=== PATIENT | male | born 1945 | race Caucasian/White ===

== ENCOUNTER 2018-06-27 16:03 | Inpatient (IN) | payer MEDICARE, MEDICAID ==
--- NOTE | 2018-06-27 16:39 | ED Physician Chart ---
ED Chief Complaint/HPI - Patient Information Date Seen:: 06/27/18 Time Seen:: 16:32 Chief Complaint:: DISORIENTATION History of Present Illness:: THIS IS A CHRONICALLY ILL MALE FROM A PRISON SENT HERE FOR AN EVALUATION MORE DISORIENTATION. lately the patient has become more confused Allergies:: Allergies Allergy/AdvReac Type Severity Reaction Status Date / Time clopidogrel [From Plavix] AdvReac Verified 06/27/18 16:05 Vitals:: Vital Signs - 8 hr 06/27/18 16:05 Temp 98.0 F HR 80 RR 16 BP 134/70 O2 Sat % 96 Historian:: Patient, Medical Records Review:: Nurse's Note Reviewed ED Review of Systems - Review of Systems General/Constitutional: No fever, No chills, No weight loss, No weakness, No diaphoresis, No edema, No loss of appetite Skin: No skin lesions, No rash, No bruising Head: No headache, No light-headedness Eyes: No loss of vision, No pain, No diplopia ENT: No earache, No nasal drainage, No sore throat, No tinnitus, Other (POOR HEARING) Neck: No neck pain, No swelling, No thyromegaly, No stiffness, No mass noted Cardio Vascular: No chest pain, No palpitations, No PND, No orthopnea, No edema Pulmonary: No SOB, No cough, No sputum, No wheezing GI: No nausea, No vomiting, No diarrhea, No pain, No melena, No hematochezia, No constipation, No hematemesis G/U: No dysuria, No frequency, No hematuria Musculoskeletal: No bone or joint pain, No back pain, No muscle pain Endocrine: No polyuria, No polydipsia Psychiatric: No prior psych history, No depression, No anxiety, No suicidal ideation Hematopoietic: No bruising, No lymphadenopathy Allergic/Immuno: No urticaria, No angioedema Neurological: No syncope, No focal symptoms, No weakness, No paresthesia, No headache, No seizure, No dizziness, No confusion, No vertigo ED Past Medical History - Past Medical History Obtainable: Yes Past Medical History: HTN, DM, CAD, Asthma/COPD, CVA/TIA, Dyslipidemia, Arthritis, Dementia Family History: None Social History: Non Smoker, No Alcohol, No Drug Use, Care Facility Surgical History: None Psychiatricy History: Depression, Bipolar, Dementia Medication: Reviewed Family Medical History - Family Member Father History Unknown: Yes ED Physical Exam - Physical Examination General/Constitutional: Awake, Well-developed, well-nourished, Alert, No distress, GCS 15, Non-toxic appearing, Ambulatory Head: Atraumatic Eyes: Lids, conjuctiva normal, PERRL, EOMI Skin: Nl inspection, No rash, No skin lesions, No ecchymosis, Well hydrated, No lymphadenopathy ENMT: External ears, nose nl, Nasal exam nl, Lips, teeth, gums nl Neck: Nontender, Full ROM w/o pain, No JVD, No nuchal rigidity, No bruit, No mass, No stridor Respiratory: Nl effort/Exclusion, Clear to Auscultation, No Wheeze/Rhonchi/Rales Cardio Vascular: RRR, No murmur, gallop, rubs, NL S1 S2 GI: No tenderness/rebounding/guarding, No organomegaly, No hernia, Normal BS's, Nondistended, No mass/bruits, No McBurney tenderness : No CVA tenderness Extremities: No tenderness or effusion, Full ROM, normal strength in all extremities, No edema, Normal digits & nails Neuro/Psych: Alert/oriented, DTR's symmetric, Normal sensory exam, Normal motor strength, Judgement/insight normal, Mood normal, Normal gait, No focal deficits Misc: Normal back, No paraspinal tenderness ED Labs/Radiology/EKG Results - Lab Results Results: Abnormal Lab Results 06/27/18 06/27/18 06/27/18 16:44 16:44 16:44 WBC 6.9 RBC 4.10 Hgb 10.5 L Hct 31.4 L MCV 76.7 L MCH 25.5 L MCHC Differential 33.3 RDW 17.1 Plt Count 316 MPV 6.8 Neutrophils % 62.7 Lymphocytes % 25.0 Monocytes % 9.0 Eosinophils % 2.2 Basophils % 1.1 Sodium 130 L Potassium 4.7 Chloride 97 L Carbon Dioxide 24.6 Anion Gap 13.1 BUN 29 H Creatinine 1.3 Est GFR ( Amer) TNP Est GFR (Non-Af Amer) TNP BUN/Creatinine Ratio 22.3 Glucose 244 H Calcium 9.0 Total Bilirubin 0.5 AST 13 ALT 13 Alkaline Phosphatase 108 H Troponin I 0.23 H* Total Protein 7.9 Albumin 4.1 L Globulin 3.8 Albumin/Globulin Ratio 1.1 - Radiology Results Results: chest x-ray = nad - EKG Interpretations EKG Time:: 16:47 Rate & Rhythm: rate = 79, sinus [place]: left axis Comments:: no ectopy ED Assessment - Assessment General Assessment: altered level of conscious elevated troponin ED Septic Shock - . Is Septic Shock (SBP<90, OR Lactate>4 mmol\L) present?: No - <6hrs of presentation: Vital Signs: Vital Signs - 8 hr //18 16:05 Temp 98.0 F HR 80 RR 16 BP 134/70 O2 Sat % 96 ED Reassessment (Disposition) - Reassessment Reassessment Condition:: Unchanged - Diagnosis Diagnosis:: altered elevated troponin - Patient Disposition Discharge/Transfer:: Acute Care w/in this hosp Admitted to:: Telemetry Admitting Medical Physician:: Navi Santos Condition at Disposition:: Stable
[2018-06-27 16:54] LABS: % BASOPHILS 1.1 % (0.0-2.0); % EOSINOPHILS 2.2 % (0.0-5.0); % NEUTROPHILS 62.7 % (40.0-80.0); BASOPHILE ABSOLUTE 0.1 Th/cumm (0-0.2); EOSINOPHILE ABSOLUTE 0.2 Th/cmm (0.1-0.4); HEMATOCRIT 31.4 % (41.0-60); HEMOGLOBIN 10.5 gm/dL (12-16); LYMPHOCYTE ABSOLUTE 1.7 Th/cmm (1.5-3.0); MEAN CELL VOLUME 76.7 fl (80-99); MEAN CORPUSCULAR HEMOGLOBIN 25.5 pg (27.0-31.0); MEAN CORPUSCULAR HGB CONC 33.3 pg (28.0-36.0); MEAN PLATELET VOLUME 6.8 fl; MONOCYTE ABSOLUTE 0.6 Th/cmm (0.3-1.0); NEUTROPHILE ABSOLUTE 4.3 Th/cmm (1.8-8.0); PLATELET COUNT 316 Th/cmm (150-400); RED CELL DISTRIBUTION WIDTH 17.1 % (11.5-20.0); WHITE BLOOD COUNT 6.9 Th/cmm (4.8-10.8)
[2018-06-27 17:15] LABS: ALB/GLOB RATIO 1.1 (1.0-1.8); ALBUMIN 4.1 gm/dL (4.2-5.5); ALKALINE PHOSPHATASE 108 U/L (34-104); ANION GAP 13.1 (7.0-16.0); BILIRUBIN,TOTAL 0.5 mg/dL (0.3-1.0); BUN - UREA NITROGEN 29 mg/dL (7-25); CARBON DIOXIDE 24.6 mEq/L (21.0-31.0); CHLORIDE 97 mEq/L (98-107); CREATININE - SERUM 1.3 mg/dL (0.7-1.3); GLUCOSE 244 mg/dL (70-105); POTASSIUM SERUM 4.7 mEq/L (3.5-5.1); SGOT 13 U/L (13-39); SGPT/ALT 13 U/L (7-52); SODIUM SERUM 130 mEq/L (136-145); TOTAL PROTEIN,SERUM 7.9 gm/dL (6.0-8.3)
[2018-06-27 17:20] LABS: INR 0.97 (0.5-1.4); PROTHROMBIN TIME (TEST) 10.1 SECONDS (9.5-11.5)
[2018-06-27] MEDS ORDERED: Sodium Chloride 0.9% 1,000 ML IV ONE (17:56)
[2018-06-27 19:14] LABS: URINE SOURCE CLEAN C
[2018-06-27 19:33] LABS: URINE BILIRUBIN NEGATIVE (NEGATIVE); URINE BLOOD NEGATIVE (NEGATIVE); URINE CLARITY CLEAR (CLEAR); URINE COLOR YELLOW; URINE GLUCOSE (UA) NEGATIVE (NEGATIVE); URINE KETONE NEGATIVE (NEGATIVE); URINE LEUKOCYTE ESTERASE NEGATIVE (NEGATIVE); URINE MICROSCOPIC INDICATED? YES; URINE NITRATE NEGATIVE (NEGATIVE); URINE PROTEIN NEGATIVE (NEGATIVE); URINE UROBILINOGEN 0.2 E.U./dL (0.2 - 1.0)
[2018-06-27 19:55] LABS: URINE BACTERIA FEW /hpf (NONE SEEN); URINE EPITHELIAL CELLS FEW /lpf (FEW); URINE WBC 0-2 /hpf (0-5)
[2018-06-27] MEDS ORDERED: Hydrocodone/APAP 5mg/325mg Tab PO PRN (22:42)
[2018-06-28 07:49] LABS: % BASOPHILS 0.6 % (0.0-2.0); % LYMPHOCYTES 24.4 % (20.0-50.0); % MONOCYTES 10.9 % (2.0-10.0); % NEUTROPHILS 61.1 % (40.0-80.0); EOSINOPHILE ABSOLUTE 0.2 Th/cmm (0.1-0.4); HEMATOCRIT 32.9 % (41.0-60); HEMOGLOBIN 10.9 gm/dL (12-16); LYMPHOCYTE ABSOLUTE 1.3 Th/cmm (1.5-3.0); MEAN CELL VOLUME 77.2 fl (80-99); MEAN CORPUSCULAR HEMOGLOBIN 25.5 pg (27.0-31.0); MEAN PLATELET VOLUME 6.7 fl; MONOCYTE ABSOLUTE 0.6 Th/cmm (0.3-1.0); NEUTROPHILE ABSOLUTE 3.1 Th/cmm (1.8-8.0); PLATELET COUNT 261 Th/cmm (150-400); RED BLOOD COUNT 4.25 Mil/cmm (3.80-5.80); RED CELL DISTRIBUTION WIDTH 17.6 % (11.5-20.0); WHITE BLOOD COUNT 5.2 Th/cmm (4.8-10.8)
[2018-06-28 08:04] LABS: ALB/GLOB RATIO 1.1 (1.0-1.8); ALBUMIN 3.9 gm/dL (4.2-5.5); ALKALINE PHOSPHATASE 115 U/L (34-104); ANION GAP 11.4 (7.0-16.0); BILIRUBIN,TOTAL 0.6 mg/dL (0.3-1.0); BUN - UREA NITROGEN 24 mg/dL (7-25); CALCIUM SERUM 9.2 mg/dL (8.6-10.3); CARBON DIOXIDE 24.9 mEq/L (21.0-31.0); CHLORIDE 100 mEq/L (98-107); CREATININE - SERUM 1.1 mg/dL (0.7-1.3); GLUCOSE 233 mg/dL (70-105); POTASSIUM SERUM 4.3 mEq/L (3.5-5.1); SGOT 13 U/L (13-39); SGPT/ALT 10 U/L (7-52); SODIUM SERUM 132 mEq/L (136-145); TOTAL PROTEIN,SERUM 7.6 gm/dL (6.0-8.3)
[2018-06-28] MEDS: Sodium Chloride 0.9% 1,000 ML IV SCH (08:16)
[2018-06-28] MEDS: INSULIN ASPART SLIDING SCALE 100 UNITS/ML UNIT SUBQ SCH ×4 (08:16→22:25)
[2018-06-28] MEDS: Pantoprazole 40 mg EC Tab PO SCH (08:51)
[2018-06-28] MEDS ORDERED: BUDESONIDE IH SCH (09:00)
[2018-06-28] MEDS ORDERED: [UNRECOGNIZED DRUG - OTHER] IH SCH (09:00)
[2018-06-28] MEDS ORDERED: FORMOTEROL FUMARATE IH SCH (09:00)
--- NOTE | 2018-06-28 09:28 | Diagnostic Imaging Report ---
CT scan of the brain without intravenous contrast HISTORY: Stroke, CVA Total DLP equals 740 CTDI equals 38.5 Axial sections were obtained from the base of the skull to the vertex. There is prominence/enlargement of the ventricular system size. Associated enlargement of cerebral sulci and subarachnoid cisterns. Findings are consistent with changes of generalized cerebral atrophy. Focal hypodensity is noted within the right occipital region. No mass effect. The overall appearance suggests changes associated with an old infarct. If necessary, an MRI examination would provide additional characterization and assessment. Small hypodense focus noted in the right thalamus consistent with an old infarct. No acute parenchymal abnormalities. No acute cerebral hemorrhage. Hypodensity is seen within the supratentorial white matter regions without mass effect. The findings may be associated with chronic small vessel ischemic disease. No extra-axial masses or abnormal fluid collections. Severe atherosclerotic calcification seen in the vertebral arteries at the base of the skull. IMPRESSION: 1. No acute abnormalities 2. Cerebral atrophy 3. Supratentorial white matter changes that may reflect chronic small vessel ischemic disease 4. Focal hypodensity within the right occipital region. The overall appearance suggests changes associated with an old infarct. However, if indicated, an MRI exam would provide additional characterization. 5. Small hypodensity within the right thalamus consistent with old lacunar infarct 6. Severe atherosclerotic vascular changes
--- NOTE | 2018-06-28 09:36 | Diagnostic Imaging Report ---
Portable chest x-ray HISTORY: Pain The heart size is difficult to assess with portable technique and a poor inspiration. No acute focal pulmonary processes. No hilar or mediastinal abnormalities. IMPRESSION: 1. No acute focal pulmonary processes
[2018-06-28] MEDS: Enoxaparin 100 mg/mL 1mL Syr SUBQ SCH ×2 (10:10→22:12)
--- NOTE | 2018-06-28 10:49 | History and Physical ---
History of Present Illness - HPI Chief Complaint: Altered level of concious. HPI: This a patient that I follow at a SNF, I received a call stating that patient showed increased in confusion. In ER evaluation was found elevated troponins Vital Signs: Last Vital Signs Temp 98.2 F 06/28/18 08:00 Pulse 76 06/28/18 08:51 Resp 16 06/28/18 08:00 BP 147/64 06/28/18 08:51 Pulse Ox 95 06/28/18 08:00 Past Medical History Cardiovascular: Report: CAD, HTN Pulmonary: Report: Asthma, COPD SAND HAULER: Report: Dementia GI: Report: No Pertinent Hx Psych: Report: Anxiety Musculoskeletal: Report: Low Back Pain Rheumatologic: Report: No pertinent Hx Infectious Disease: Report: No Pertinent Hx Renal/: Report: No Pertinent Hx Endocrine: Report: Diabetes - Past Surgical History Past Surgical History: Other (Cardiac Stent placement) Family Medical History - Family Member Father History Unknown: Yes Social History Smoke: No Alcohol: None Drugs: None Lives: [facility] Domestic Violence: Negative - Medications Home Medications: Home Medication Medication Instructions Recorded Type Acetaminophen [Tylenol] 650 mg PO Q6HR PRN 06/27/18 History Albuterol Sulfate [Proair 90 mcg IH Q6H PRN 06/27/18 History Respiclick] Aspirin [Aspirin Chewable] 81 mg PO DAILY 06/27/18 History Atorvastatin Calcium [Lipitor] 40 mg PO HS 06/27/18 History Budesonide/Formoterol Fumarate 14.5 mcg IH BID 06/27/18 History [Symbicort 160-4.5 Mcg Inhaler] FLUoxetine HCL [Prozac*] 20 mg PO BID 06/27/18 History Hydrocodone/Acetaminophen [Tatamy 1 tab PO QID PRN 06/27/18 History 325 mg-5 mg*] Insulin Glargine,Hum.rec.anlog 25 unit SUBQ 06/27/18 History [Lantus Solostar] Lisinopril [Zestril] 10 mg PO DAILY 06/27/18 History Metoprolol Succinate [Toprol Xl] 25 mg PO DAILY 06/27/18 History Omeprazole 40 mg PO DAILY 06/27/18 History Tiotropium D Lo [Spiriva 2.5 mcg IH TID PRN 06/27/18 History Respimat] - Allergies Allergies/Adverse Reactions: Allergies Allergy/AdvReac Type Severity Reaction Status Date / Time corn Allergy Severe Verified 06/27/18 18:06 nicotine Allergy Severe Verified 06/27/18 18:06 tomato Allergy Severe Verified 06/27/18 18:05 clopidogrel [From Plavix] AdvReac Verified 06/27/18 16:05 Review of Systems - Review of Systems Constitutional: Report: Weakness Eyes: Report: No Significant ENT: Report: No Significant Respiratory: Report: No Significant Cardiovascular: Report: No Significant Gastrointestinal: Report: No Significant Genitourinary: Report: No Significant Musculoskeletal: Report: Back Pain Skin: Report: No Significant Neurological: Report: Weakness Physical Exam - Physical Exam HEENT: Report: Ears Nose Throat within normal limits Neck: Report: Within normal limits Cardiovascular Systems: Report: Regular, Rate and Rhythm Respiratory: Report: Breath Sounds are within normal limits Abdomen: Report: Non-tender to palpation Back: Report: Inspection of back is within normal limits. Extremities: Report: Non-tender to palpation. Skin: Report: Color of skin is within normal limits, Warm, Dry Neuro/Psych: Report: Disoriented to name time or place - Lab Results All Lab Results last 24 hours: Laboratory Results - last 24 hr 06/27/18 06/27/18 06/27/18 16:44 16:44 16:44 WBC 6.9 RBC 4.10 Hgb 10.5 L Hct 31.4 L MCV 76.7 L MCH 25.5 L MCHC Differential 33.3 RDW 17.1 Plt Count 316 MPV 6.8 Neutrophils % 62.7 Lymphocytes % 25.0 Monocytes % 9.0 Eosinophils % 2.2 Basophils % 1.1 PT 10.1 INR 0.97 PTT (Actin FS) 25.0 L Sodium 130 L Potassium 4.7 Chloride 97 L Carbon Dioxide 24.6 Anion Gap 13.1 BUN 29 H Creatinine 1.3 Est GFR ( Amer) TNP Est GFR (Non-Af Amer) TNP BUN/Creatinine Ratio 22.3 Glucose 244 H POC Glucose Calcium 9.0 Total Bilirubin 0.5 AST 13 ALT 13 Alkaline Phosphatase 108 H Troponin I Total Protein 7.9 Albumin 4.1 L Globulin 3.8 Albumin/Globulin Ratio 1.1 TSH Urine Source Urine Color Urine Clarity Urine pH Ur Specific [place] Urine Protein Urine Glucose (UA) Urine Ketones Urine Blood Urine Nitrate Urine Bilirubin Urine Urobilinogen Ur Leukocyte Esterase Urine RBC Urine WBC Ur Epithelial Cells Urine Bacteria Urine Mucus 06/27/18 06/27/18 06/27/18 16:44 16:44 18:00 WBC RBC Hgb Hct MCV MCH MCHC Differential RDW Plt Count MPV Neutrophils % Lymphocytes % Monocytes % Eosinophils % Basophils % PT INR PTT (Actin FS) Sodium Potassium Chloride Carbon Dioxide Anion Gap BUN Creatinine Est GFR ( Amer) Est GFR (Non-Af Amer) BUN/Creatinine Ratio Glucose POC Glucose Calcium Total Bilirubin AST ALT Alkaline Phosphatase Troponin I 0.23 H* Total Protein Albumin Globulin Albumin/Globulin Ratio TSH 1.45 Urine Source CLEAN C Urine Color YELLOW Urine Clarity CLEAR Urine pH 6.0 Ur Specific [place] 1.015 Urine Protein NEGATIVE Urine Glucose (UA) NEGATIVE Urine Ketones NEGATIVE Urine Blood NEGATIVE Urine Nitrate NEGATIVE Urine Bilirubin NEGATIVE Urine Urobilinogen 0.2 Ur Leukocyte Esterase NEGATIVE Urine RBC 2-5 H Urine WBC 0-2 Ur Epithelial Cells FEW Urine Bacteria FEW Urine Mucus FEW 06/27/18 06/28/18 06/28/18 23:05 05:49 07:38 WBC 5.2 RBC 4.25 Hgb 10.9 L Hct 32.9 L MCV 77.2 L MCH 25.5 L MCHC Differential 33.0 RDW 17.6 Plt Count 261 MPV 6.7 Neutrophils % 61.1 Lymphocytes % 24.4 Monocytes % 10.9 H Eosinophils % 3.0 Basophils % 0.6 PT INR PTT (Actin FS) Sodium Potassium Chloride Carbon Dioxide Anion Gap BUN Creatinine Est GFR ( Amer) Est GFR (Non-Af Amer) BUN/Creatinine Ratio Glucose POC Glucose 222 H Calcium Total Bilirubin AST ALT Alkaline Phosphatase Troponin I 0.21 H* Total Protein Albumin Globulin Albumin/Globulin Ratio TSH Urine Source Urine Color Urine Clarity Urine pH Ur Specific [place] Urine Protein Urine Glucose (UA) Urine Ketones Urine Blood Urine Nitrate Urine Bilirubin Urine Urobilinogen Ur Leukocyte Esterase Urine RBC Urine WBC Ur Epithelial Cells Urine Bacteria Urine Mucus 06/28/18 06/28/18 07:38 07:38 WBC RBC Hgb Hct MCV MCH MCHC Differential RDW Plt Count MPV Neutrophils % Lymphocytes % Monocytes % Eosinophils % Basophils % PT INR PTT (Actin FS) Sodium 132 L Potassium 4.3 Chloride 100 Carbon Dioxide 24.9 Anion Gap 11.4 BUN 24 Creatinine 1.1 Est GFR ( Amer) TNP Est GFR (Non-Af Amer) TNP BUN/Creatinine Ratio 21.8 Glucose 233 H POC Glucose Calcium 9.2 Total Bilirubin 0.6 AST 13 ALT 10 Alkaline Phosphatase 115 H Troponin I 0.17 H* D Total Protein 7.6 Albumin 3.9 L Globulin 3.7 Albumin/Globulin Ratio 1.1 TSH Urine Source Urine Color Urine Clarity Urine pH Ur Specific [place] Urine Protein Urine Glucose (UA) Urine Ketones Urine Blood Urine Nitrate Urine Bilirubin Urine Urobilinogen Ur Leukocyte Esterase Urine RBC Urine WBC Ur Epithelial Cells Urine Bacteria Urine Mucus - Assessment Assessment: Patient is awake, alert, calm, in no acute distress. Dx: Elevated troponin, HTN , DM, COPD, Hard of hearing, - Plan Plan: Pastient is in IV NS, Lovenos, and continue with SNF meds. He is follow by cardiology.
[2018-06-28] MEDS: Hydrocodone/APAP 5mg/325mg Tab PO PRN ×2 (12:51→22:09)
[2018-06-28] MEDS: Atorvastatin Calcium 10 MG TAB PO SCH (22:06)
[2018-06-28] MEDS: Insulin Detemir 100 units/mL 10mL Vial SUBQ SCH (22:26)
--- NOTE | 2018-06-29 02:50 | Consultation ---
DATE OF CONSULTATION: 06/28/[address] Santos. HISTORY OF PRESENT ILLNESS: This is a 73-year-old male patient who was brought to the Emergency Room due to increased confusion in the Emergency Room. The patient has elevated troponin level and hence, the patient was admitted. PAST MEDICAL HISTORY: The patient has a history of hypertension, angina, asthma, COPD, diabetes mellitus type 2, and deafness. FAMILY HISTORY: Unremarkable. SOCIAL HISTORY: No history of smoking, alcohol abuse. ALLERGIES: No known allergies. PHYSICAL EXAMINATION: VITAL SIGNS: Blood pressure 140/64, pulse 70, and respirations 20. HEAD: Normocephalic. No lumps or bumps. EYES: Pupils equal, reactive to light. Fundi show AV nicking, sclerae white, conjunctivae pink. NECK: Carotid 2+. Normal upstroke. JVD flat. Thyroid not palpable. Lymph nodes not palpable. CHEST: Shows increased AP diameter. No kyphosis, scoliosis. LUNGS: Bilateral bronchovesicular breath sounds. HEART: PMI fifth intercostal space with lateral to midclavicular line. S1, S2. No S3, S4, soft systolic murmur. ABDOMEN: Soft. Liver, spleen not palpable. No organomegaly. Bowel sounds active. NEUROLOGIC: Unremarkable. CLINICAL IMPRESSION: 1. Non-ST elevation myocardial infarction. 2. Hypertension. 3. Coronary artery disease with stent. 4. Asthma. 5. Chronic obstructive pulmonary disease. 6. Diabetes mellitus type 2. 7. Deafness. PLAN: Admit the patient. We will get Lovenox and echocardiogram and follow up in the intensive care. [facility]# [id number]
[2018-06-29] MEDS: Hydrocodone/APAP 5mg/325mg Tab PO PRN ×3 (04:33→18:42)
[2018-06-29 05:39] LABS: % EOSINOPHILS 3.4 % (0.0-5.0); % LYMPHOCYTES 29.7 % (20.0-50.0); % NEUTROPHILS 55.9 % (40.0-80.0); BASOPHILE ABSOLUTE 0.1 Th/cumm (0-0.2); EOSINOPHILE ABSOLUTE 0.2 Th/cmm (0.1-0.4); HEMATOCRIT 29.6 % (41.0-60); HEMOGLOBIN 9.9 gm/dL (12-16); LYMPHOCYTE ABSOLUTE 1.8 Th/cmm (1.5-3.0); MEAN CELL VOLUME 76.3 fl (80-99); MEAN CORPUSCULAR HEMOGLOBIN 25.5 pg (27.0-31.0); MEAN CORPUSCULAR HGB CONC 33.5 pg (28.0-36.0); MONOCYTE ABSOLUTE 0.6 Th/cmm (0.3-1.0); NEUTROPHILE ABSOLUTE 3.5 Th/cmm (1.8-8.0); PLATELET COUNT 262 Th/cmm (150-400); RED BLOOD COUNT 3.87 Mil/cmm (3.80-5.80); RED CELL DISTRIBUTION WIDTH 17.3 % (11.5-20.0); WHITE BLOOD COUNT 6.2 Th/cmm (4.8-10.8)
[2018-06-29] MEDS: Sodium Chloride 0.9% 1,000 ML IV SCH ×2 (05:59→16:54)
[2018-06-29 06:02] LABS: ALB/GLOB RATIO 1.1 (1.0-1.8); ALBUMIN 3.6 gm/dL (4.2-5.5); ALKALINE PHOSPHATASE 97 U/L (34-104); ANION GAP 9.4 (7.0-16.0); BILIRUBIN,TOTAL 0.5 mg/dL (0.3-1.0); BUN - UREA NITROGEN 22 mg/dL (7-25); CALCIUM SERUM 8.9 mg/dL (8.6-10.3); CARBON DIOXIDE 27.8 mEq/L (21.0-31.0); CHLORIDE 102 mEq/L (98-107); CREATININE - SERUM 1.2 mg/dL (0.7-1.3); POTASSIUM SERUM 4.2 mEq/L (3.5-5.1); SGOT 12 U/L (13-39); SGPT/ALT 10 U/L (7-52); SODIUM SERUM 135 mEq/L (136-145); TOTAL PROTEIN,SERUM 6.9 gm/dL (6.0-8.3)
[2018-06-29 06:11] LABS: GLUCOSE 125 mg/dL (70-105)
[2018-06-29] MEDS: INSULIN ASPART SLIDING SCALE 100 UNITS/ML UNIT SUBQ SCH ×4 (07:17→21:14)
[2018-06-29] MEDS: Pantoprazole 40 mg EC Tab PO SCH (08:38)
[2018-06-29] MEDS: Enoxaparin 100 mg/mL 1mL Syr SUBQ SCH ×2 (08:39→21:13)
--- NOTE | 2018-06-29 09:03 | General Progress Note ---
Subjective - Review of Systems Service Date: 06/29/18 Subjective: I am Ok. Objective - Results Result Diagrams: 06/29/18 04:50 06/29/18 04:50 Recent Labs: Laboratory Last Values WBC 6.2 Th/cmm (4.8-10.8) 06/29/18 04:50 RBC 3.87 Mil/cmm (3.80-5.80) 06/29/18 04:50 Hgb 9.9 gm/dL (12-16) L 06/29/18 04:50 Hct 29.6 % (41.0-60) L 06/29/18 04:50 MCV 76.3 fl (80-99) L 06/29/18 04:50 MCH 25.5 pg (27.0-31.0) L 06/29/18 04:50 MCHC Differential 33.5 pg (28.0-36.0) 06/29/18 04:50 RDW 17.3 % (11.5-20.0) 06/29/18 04:50 Plt Count 262 Th/cmm (150-400) 06/29/18 04:50 MPV 7.0 fl 06/29/18 04:50 Neutrophils % 55.9 % (40.0-80.0) 06/29/18 04:50 Lymphocytes % 29.7 % (20.0-50.0) 06/29/18 04:50 Monocytes % 10.0 % (2.0-10.0) 06/29/18 04:50 Eosinophils % 3.4 % (0.0-5.0) 06/29/18 04:50 Basophils % 1.0 % (0.0-2.0) 06/29/18 04:50 PT 10.1 SECONDS (9.5-11.5) 06/27/18 16:44 INR 0.97 (0.5-1.4) 06/27/18 16:44 PTT (Actin FS) 25.0 SECONDS (26.0-38.0) L 06/27/18 16:44 Sodium 135 mEq/L (136-145) L 06/29/18 04:50 Potassium 4.2 mEq/L (3.5-5.1) 06/29/18 04:50 Chloride 102 mEq/L (98-107) 06/29/18 04:50 Carbon Dioxide 27.8 mEq/L (21.0-31.0) 06/29/18 04:50 Anion Gap 9.4 (7.0-16.0) 06/29/18 04:50 BUN 22 mg/dL (7-25) 06/29/18 04:50 Creatinine 1.2 mg/dL (0.7-1.3) 06/29/18 04:50 Est GFR ( Amer) TNP 06/29/18 04:50 Est GFR (Non-Af Amer) TNP 06/29/18 04:50 BUN/Creatinine Ratio 18.3 06/29/18 04:50 Glucose 125 mg/dL (70-105) H D 06/29/18 04:50 POC Glucose 142 MG/DL (70 - 105) H 06/29/18 06:04 Calcium 8.9 mg/dL (8.6-10.3) 06/29/18 04:50 Total Bilirubin 0.5 mg/dL (0.3-1.0) 06/29/18 04:50 AST 12 U/L (13-39) L 06/29/18 04:50 ALT 10 U/L (7-52) 06/29/18 04:50 Alkaline Phosphatase 97 U/L (34-104) 06/29/18 04:50 Troponin I 0.13 ng/mL (0.01-0.05) H* D 06/29/18 04:50 B-Natriuretic Peptide 134.0 pg/mL (5.0-100.0) H 06/29/18 04:50 Total Protein 6.9 gm/dL (6.0-8.3) 06/29/18 04:50 Albumin 3.6 gm/dL (4.2-5.5) L 06/29/18 04:50 Globulin 3.3 gm/dL 06/29/18 04:50 Albumin/Globulin Ratio 1.1 (1.0-1.8) 06/29/18 04:50 TSH 1.45 uIU/ml (0.34-5.60) 06/27/18 16:44 Urine Source CLEAN C 06/27/18 18:00 Urine Color YELLOW 06/27/18 18:00 Urine Clarity CLEAR (CLEAR) 06/27/18 18:00 Urine pH 6.0 (4.6 - 8.0) 06/27/18 18:00 Ur Specific [place] 1.015 (1.005-1.030) 06/27/18 18:00 Urine Protein NEGATIVE mg/dL (NEGATIVE) 06/27/18 18:00 Urine Glucose (UA) NEGATIVE mg/dL (NEGATIVE) 06/27/18 18:00 Urine Ketones NEGATIVE mg/dL (NEGATIVE) 06/27/18 18:00 Urine Blood NEGATIVE (NEGATIVE) 06/27/18 18:00 Urine Nitrate NEGATIVE (NEGATIVE) 06/27/18 18:00 Urine Bilirubin NEGATIVE (NEGATIVE) 06/27/18 18:00 Urine Urobilinogen 0.2 E.U./dL (0.2 - 1.0) 06/27/18 18:00 Ur Leukocyte Esterase NEGATIVE (NEGATIVE) 06/27/18 18:00 Urine RBC 2-5 /hpf (0-5) H 06/27/18 18:00 Urine WBC 0-2 /hpf (0-5) 06/27/18 18:00 Ur Epithelial Cells FEW /lpf (FEW) 06/27/18 18:00 Urine Bacteria FEW /hpf (NONE SEEN) 06/27/18 18:00 Urine Mucus FEW /lpf (FEW) 06/27/18 18:00 - Physical Exam Vitals and I&O: Vital Signs Temp 98 F 06/29/18 04:00 Pulse 66 06/29/18 08:36 Resp 18 06/29/18 04:00 BP 136/60 06/29/18 08:36 Pulse Ox 97 06/29/18 04:00 Intake & Output 06/28/18 06/29/18 06/29/18 18:59 06:59 18:59 Intake Total 1550 1000 Output Total 1100 Balance 450 1000 Weight (lbs) 105.007 kg 104.78 kg Intake: Intake, IV Amount 1000 Sodium Chloride 0.9% 1, 1000 000 ml @ 80 mls/hr IV . [id number] JAYDE Rx#:[id number] Oral 1550 Output: Urine 1100 Other: # Voids 3 # Bowel Movements 0 Weight Source Bedscale Bedscale Active Medications: Current Medications Acetaminophen (Tylenol) 650 mg PO Q6HR PRN PRN Reason: Pain (Mild) Stop: 08/26/18 22:41 Last Admin: 06/29/18 08:37 Dose: 650 mg Acetaminophen/Hydrocodone Bitart ([place] 5mg/325mg) 1 tab PO Q6H PRN PRN Reason: Pain (Severe) Stop: 08/26/18 22:41 Last Admin: 06/29/18 04:33 Dose: 1 tab Albuterol Sulfate (Albuterol 2.5mg/3ml Neb Ud) 2.5 mg HHN [id number] [facility] Stop: 08/27/18 18:59 Aspirin (Aspirin) 325 mg PO DAILY JAYDE Stop: 08/26/18 17:59 Last Admin: 06/29/18 08:39 Dose: 325 mg Atorvastatin Calcium (Lipitor) 40 mg PO HS [facility] Stop: 08/27/18 20:59 Last Admin: 06/28/18 22:06 Dose: 40 mg Budesonide (Pulmicort) 0.5 mg HHN BIDRT [facility] Stop: 08/27/18 18:59 Enoxaparin Sodium (Lovenox) 100 mg SUBQ Q12HR [facility] Stop: 08/27/18 09:59 Last Admin: 06/29/18 08:39 Dose: 100 mg Fluoxetine HCl (Prozac) 20 mg PO BID [facility]; Protocol Stop: 08/27/18 08:59 Last Admin: 06/29/18 08:38 Dose: 20 mg Sodium Chloride (Nacl 0.9%) 1,000 mls @ 80 mls/hr IV .[id number] [facility] Stop: 08/27/18 07:59 Last Admin: 06/29/18 05:59 Dose: 80 mls/hr Insulin Aspart (Novolog Insulin Sliding Scale) 0 units SUBQ ACHS [facility]; Protocol Stop: 08/27/18 07:29 Last Admin: 06/29/18 07:17 Dose: Not Given Insulin Detemir (Levemir Insulin) 25 units SUBQ HS [facility] Stop: 08/27/18 20:59 Last Admin: 06/28/18 22:26 Dose: 25 units Lisinopril (Zestril) 10 mg PO DAILY [facility] Stop: 08/27/18 08:59 Last Admin: 06/29/18 08:36 Dose: 10 mg Metoprolol Succinate (Toprol Xl) 25 mg PO DAILY [facility] Stop: 08/27/18 08:59 Last Admin: 06/29/18 08:35 Dose: 25 mg Pantoprazole Sodium (Protonix) 40 mg PO DAILY JAYDE Stop: 08/27/18 08:59 Last Admin: 06/29/18 08:38 Dose: 40 mg General: Alert, No acute distress HEENT: Atraumatic Neck: Supple Cardiovascular: Regular rate Lungs: Clear to auscultation Abdomen: Bowel sounds, Soft Extremities: Other (No edema) Neurological: Other (Unstable gait) Skin: Other (Warm and dry) Psych/Mental Status: Mental status NL Assessment/Plan - Assessment Assessment: Patient is awake, alert, calm, in no acute distress. Troponin improving. Dx: Non ST elevation SC, HTN, DM, COPD, Deaf, HX of cardiac stent. - Plan Plan: Pastient is in IV NS, Lovenox, and continue with SNF meds. He is follow by cardiology. Patient will be send to regular floor.
[2018-06-29] MEDS: Albuterol Nebulizer 2.5mg/3mL HHN SCH ×2 (12:44→18:52)
--- NOTE | 2018-06-29 15:58 | Cardiology ---
06/28/[address] Santos. M-MODE ECHOCARDIOGRAM: Mitral valve, anterior leaflet of mitral valve shows normal excursion, EF velocity. Posterior leaflet of mitral valve shows normal excursion. Left ventricle posterior wall shows increased thickness, normal excursion. Interventricular septum shows increased thickness, normal excursion, hypertrophy of the left ventricle, ejection fraction 60%. Left atrium normal. Aortic root shows normal dimension, normal excursion of aortic leaflets. CONCLUSION: Hypertrophy of the left ventricle, ejection fraction 60%. 2D ECHO: Long axis view showed normal sized left ventricle with hypertrophy of the left ventricle. Left atrium normal. Aortic root shows normal dimension, normal excursion of aortic leaflets. Short axis view of mitral valve normal. Short axis view of aortic valve normal. Apical four chamber view showed normal sized left ventricle with hypertrophy of the left ventricle. Left atrium normal. Right ventricular cavity, right atrium normal, no pericardial effusion. CONCLUSION: Hypertrophy of the left ventricle, ejection fraction 60%. Doppler study showed trace tricuspid regurgitation, right ventricular systolic pressure 17 mmHg. [facility]# [id number]
[2018-06-29] MEDS: Budesonide 0.5 Mg/2 mL Ud HHN SCH (18:52)
[2018-06-29] MEDS: Atorvastatin Calcium 10 MG TAB PO SCH (21:12)
[2018-06-29] MEDS: Insulin Detemir 100 units/mL 10mL Vial SUBQ SCH (21:15)
[2018-06-30] MEDS: Hydrocodone/APAP 5mg/325mg Tab PO PRN ×3 (01:03→17:20)
[2018-06-30 05:12] LABS: % BASOPHILS 0.8 % (0.0-2.0); % EOSINOPHILS 2.5 % (0.0-5.0); % LYMPHOCYTES 30.5 % (20.0-50.0); % MONOCYTES 8.8 % (2.0-10.0); % NEUTROPHILS 57.4 % (40.0-80.0); BASOPHILE ABSOLUTE 0.1 Th/cumm (0-0.2); EOSINOPHILE ABSOLUTE 0.2 Th/cmm (0.1-0.4); HEMATOCRIT 30.3 % (41.0-60); HEMOGLOBIN 10.2 gm/dL (12-16); LYMPHOCYTE ABSOLUTE 2.2 Th/cmm (1.5-3.0); MEAN CELL VOLUME 76.4 fl (80-99); MEAN CORPUSCULAR HEMOGLOBIN 25.7 pg (27.0-31.0); MEAN CORPUSCULAR HGB CONC 33.6 pg (28.0-36.0); MEAN PLATELET VOLUME 6.9 fl; MONOCYTE ABSOLUTE 0.6 Th/cmm (0.3-1.0); PLATELET COUNT 298 Th/cmm (150-400); RED BLOOD COUNT 3.97 Mil/cmm (3.80-5.80); RED CELL DISTRIBUTION WIDTH 17.5 % (11.5-20.0); WHITE BLOOD COUNT 7.1 Th/cmm (4.8-10.8)
--- NOTE | 2018-06-30 07:12 | General Progress Note ---
Subjective - Review of Systems Service Date: 06/30/18 Subjective: I am fine Objective - Results Result Diagrams: 06/30/18 04:50 06/29/18 04:50 Recent Labs: Laboratory Last Values WBC 7.1 Th/cmm (4.8-10.8) 06/30/18 04:50 RBC 3.97 Mil/cmm (3.80-5.80) 06/30/18 04:50 Hgb 10.2 gm/dL (12-16) L 06/30/18 04:50 Hct 30.3 % (41.0-60) L 06/30/18 04:50 MCV 76.4 fl (80-99) L 06/30/18 04:50 MCH 25.7 pg (27.0-31.0) L 06/30/18 04:50 MCHC Differential 33.6 pg (28.0-36.0) 06/30/18 04:50 RDW 17.5 % (11.5-20.0) 06/30/18 04:50 Plt Count 298 Th/cmm (150-400) 06/30/18 04:50 MPV 6.9 fl 06/30/18 04:50 Neutrophils % 57.4 % (40.0-80.0) 06/30/18 04:50 Lymphocytes % 30.5 % (20.0-50.0) 06/30/18 04:50 Monocytes % 8.8 % (2.0-10.0) 06/30/18 04:50 Eosinophils % 2.5 % (0.0-5.0) 06/30/18 04:50 Basophils % 0.8 % (0.0-2.0) 06/30/18 04:50 PT 10.1 SECONDS (9.5-11.5) 06/27/18 16:44 INR 0.97 (0.5-1.4) 06/27/18 16:44 PTT (Actin FS) 25.0 SECONDS (26.0-38.0) L 06/27/18 16:44 Sodium 135 mEq/L (136-145) L 06/29/18 04:50 Potassium 4.2 mEq/L (3.5-5.1) 06/29/18 04:50 Chloride 102 mEq/L (98-107) 06/29/18 04:50 Carbon Dioxide 27.8 mEq/L (21.0-31.0) 06/29/18 04:50 Anion Gap 9.4 (7.0-16.0) 06/29/18 04:50 BUN 22 mg/dL (7-25) 06/29/18 04:50 Creatinine 1.2 mg/dL (0.7-1.3) 06/29/18 04:50 Est GFR ( Amer) TNP 06/29/18 04:50 Est GFR (Non-Af Amer) TNP 06/29/18 04:50 BUN/Creatinine Ratio 18.3 06/29/18 04:50 Glucose 125 mg/dL (70-105) H D 06/29/18 04:50 POC Glucose 159 MG/DL (70 - 105) H 06/30/18 05:55 Calcium 8.9 mg/dL (8.6-10.3) 06/29/18 04:50 Total Bilirubin 0.5 mg/dL (0.3-1.0) 06/29/18 04:50 AST 12 U/L (13-39) L 06/29/18 04:50 ALT 10 U/L (7-52) 06/29/18 04:50 Alkaline Phosphatase 97 U/L (34-104) 06/29/18 04:50 Troponin I 0.09 ng/mL (0.01-0.05) H* D 06/30/18 04:50 B-Natriuretic Peptide 134.0 pg/mL (5.0-100.0) H 06/29/18 04:50 Total Protein 6.9 gm/dL (6.0-8.3) 06/29/18 04:50 Albumin 3.6 gm/dL (4.2-5.5) L 06/29/18 04:50 Globulin 3.3 gm/dL 06/29/18 04:50 Albumin/Globulin Ratio 1.1 (1.0-1.8) 06/29/18 04:50 TSH 1.45 uIU/ml (0.34-5.60) 06/27/18 16:44 Urine Source CLEAN C 06/27/18 18:00 Urine Color YELLOW 06/27/18 18:00 Urine Clarity CLEAR (CLEAR) 06/27/18 18:00 Urine pH 6.0 (4.6 - 8.0) 06/27/18 18:00 Ur Specific [place] 1.015 (1.005-1.030) 06/27/18 18:00 Urine Protein NEGATIVE mg/dL (NEGATIVE) 06/27/18 18:00 Urine Glucose (UA) NEGATIVE mg/dL (NEGATIVE) 06/27/18 18:00 Urine Ketones NEGATIVE mg/dL (NEGATIVE) 06/27/18 18:00 Urine Blood NEGATIVE (NEGATIVE) 06/27/18 18:00 Urine Nitrate NEGATIVE (NEGATIVE) 06/27/18 18:00 Urine Bilirubin NEGATIVE (NEGATIVE) 06/27/18 18:00 Urine Urobilinogen 0.2 E.U./dL (0.2 - 1.0) 06/27/18 18:00 Ur Leukocyte Esterase NEGATIVE (NEGATIVE) 06/27/18 18:00 Urine RBC 2-5 /hpf (0-5) H 06/27/18 18:00 Urine WBC 0-2 /hpf (0-5) 06/27/18 18:00 Ur Epithelial Cells FEW /lpf (FEW) 06/27/18 18:00 Urine Bacteria FEW /hpf (NONE SEEN) 06/27/18 18:00 Urine Mucus FEW /lpf (FEW) 06/27/18 18:00 - Physical Exam Vitals and I&O: Vital Signs Temp 99 F 06/30/18 04:00 Pulse 67 06/30/18 04:00 Resp 18 06/30/18 04:00 BP 139/56 06/30/18 04:00 Pulse Ox 95 06/30/18 04:00 Intake & Output 06/29/18 06/30/18 06/30/18 18:59 06:59 18:59 Intake Total 873.333 Balance 873.333 Weight (lbs) 104.78 kg 104.78 kg Intake: Intake, IV Amount 873.333 Sodium Chloride 0.9% 1, 873.333 000 ml @ 80 mls/hr IV . [id number] [facility] Rx#:[id number] Other: # Voids 2 Weight Source Estimated Bedscale Active Medications: Current Medications Acetaminophen (Tylenol) 650 mg PO Q6HR PRN PRN Reason: Pain (Mild) Stop: 08/26/18 22:41 Last Admin: 06/29/18 08:37 Dose: 650 mg Acetaminophen/Hydrocodone Bitart ([place] 5mg/325mg) 1 tab PO Q6H PRN PRN Reason: Pain (Severe) Stop: 08/26/18 22:41 Last Admin: 06/30/18 01:03 Dose: 1 tab Albuterol Sulfate (Albuterol 2.5mg/3ml Neb Ud) 2.5 mg HHN [id number] [facility] Stop: 08/27/18 18:59 Last Admin: 06/29/18 18:52 Dose: 2.5 mg Aspirin (Aspirin) 325 mg PO DAILY [facility] Stop: 08/26/18 17:59 Last Admin: 06/29/18 08:39 Dose: 325 mg Atorvastatin Calcium (Lipitor) 40 mg PO HS [facility] Stop: 08/27/18 20:59 Last Admin: 06/29/18 21:12 Dose: 40 mg Budesonide (Pulmicort) 0.5 mg HHN BIDRT [facility] Stop: 08/27/18 18:59 Last Admin: 06/29/18 18:52 Dose: 0.5 mg Enoxaparin Sodium (Lovenox) 100 mg SUBQ Q12HR [facility] Stop: 08/27/18 09:59 Last Admin: 06/29/18 21:13 Dose: 100 mg Fluoxetine HCl (Prozac) 20 mg PO BID [facility]; Protocol Stop: 08/27/18 08:59 Last Admin: 06/29/18 16:53 Dose: 20 mg Sodium Chloride (Nacl 0.9%) 1,000 mls @ 80 mls/hr IV .[id number] [facility] Stop: 08/27/18 07:59 Last Admin: 06/29/18 16:54 Dose: 80 mls/hr Insulin Aspart (Novolog Insulin Sliding Scale) 0 units SUBQ ACHS [facility]; Protocol Stop: 08/27/18 07:29 Last Admin: 06/29/18 21:14 Dose: 4 units Insulin Detemir (Levemir Insulin) 25 units SUBQ HS [facility] Stop: 08/27/18 20:59 Last Admin: 06/29/18 21:15 Dose: 25 units Lisinopril (Zestril) 10 mg PO DAILY [facility] Stop: 08/27/18 08:59 Last Admin: 06/29/18 08:36 Dose: 10 mg Metoprolol Succinate (Toprol Xl) 25 mg PO DAILY [facility] Stop: 08/27/18 08:59 Last Admin: 06/29/18 08:35 Dose: 25 mg Mupirocin (Bactroban Oint) 1 appl TP Q12HR JAYDE Stop: 07/04/18 20:59 Last Admin: 06/29/18 21:25 Dose: 1 appl Pantoprazole Sodium (Protonix) 40 mg PO DAILY [facility] Stop: 08/27/18 08:59 Last Admin: 06/29/18 08:38 Dose: 40 mg General: Alert, No acute distress HEENT: Atraumatic Neck: Supple Cardiovascular: Regular rate Lungs: Clear to auscultation Abdomen: Bowel sounds, Soft Extremities: Other (No edema) Neurological: Other (Unstable gait) Skin: Other (Warm and dry) Psych/Mental Status: Mental status NL Assessment/Plan - Assessment Assessment: Patient is awake, alert, calm, in no acute distress. Troponin improving today was 0.9 from 0.23. Dx: Non ST elevation [place], HTN, DM, COPD, Deaf, HX of cardiac stent. - Plan Plan: Pastient is in IV NS, Lovenox, and continue with SNF meds. He is follow by cardiology. Will continue to monitor Nutritional Asmnt/Malnutr-PDOC - Dietary Evaluation Malnutrition Findings (Please click <Entered> for more info): Nutritional Asmnt/Malnutrition Start: 06/29/18 18: 11 Text: Status: Complete Freq: Protocol: Document 06/29/18 18:11 LCHENG (Rec: 06/29/18 18:24 HENG [id number]) Nutritional Asmnt/Malnutrition Patient General Information Nutritional Screening High Risk Diagnosis elevated troponin Pertinent Medical Hx/Surgical Hx HTN, DM, CAD, asthma/COPD, CVA /TIA, dyslipidemia, arthritis, dementia, depression, bipolar , dementia Subjective Information no po intake record as of this time Current Diet Order/ Nutrition Support low sodium, low cho, diabetic diet Pertinent Medications lipitor, novolog, levemir, protonix, nacl 0.9% Pertinent Labs 06/29 Na 135, glucose 125, POC 142-169, Alb 3.6 06/28 Na 132, glucose 233, alb 3.9 Nutritional Hx/Data Height 1.83 m Height (Calculated Centimeters) 182.9 Current Weight (lbs) 104.78 kg Weight (Calculated Kilograms) 104.8 Weight (Calculated Grams) 659878.8 [place] Body Weight 178 Body Mass Index (BMI) 31.3 Weight Status Overweight GI Symptoms GI Symptoms None Last BM none Food Allergies Yes: tomato, corn Skin Integrity/Comment: scab to nose, right hand and left knee, abrasion to left 2nd toe and 3rd toe Estimated Nutritional Goals BEE in Kcals: Adj wt of IBW Calories/Kcals/Kg 25-30 Kcals Calculated 4711-4907 Protein: Adj wt of IBW Protein g/k Protein Calculated 87 Fluid: ml 2175-2610ml (1ml/kcal) Nutritional Problem 1. Problem Problem altered nutrition related labs Etiology hx of DM Signs/Symptoms: glucose 125-244 Malnutrition Alert Is there a minimum of two criteria No selected? Query Text:Check all the applicable criteria. A minimum of two criteria are recommended for diagnosis of either severe or non-severe malnutrition. Malnutrition Related to Morbid Obesity Malnutrition related to morbid obesity No Intervention/Recommendation Comments 1. Continue with current diet as ordered. 2. Monitor PO intake, wt, labs and skin integrity 3. F/U as high risk in 2-3 days, 07/01-07/02 Expected Outcomes/Goals Expected Outcomes/Goals 1. PO intake to meet at least 75% of nutritional needs. 2. Wt stability, skin to remain intact, labs to approach WNL.
[2018-06-30 07:26] LABS: ALB/GLOB RATIO 1.1 (1.0-1.8); ALKALINE PHOSPHATASE 97 U/L (34-104); ANION GAP 11.1 (7.0-16.0); BILIRUBIN,TOTAL 0.5 mg/dL (0.3-1.0); BUN - UREA NITROGEN 21 mg/dL (7-25); CALCIUM SERUM 9.3 mg/dL (8.6-10.3); CARBON DIOXIDE 27.4 mEq/L (21.0-31.0); CHLORIDE 101 mEq/L (98-107); CREATININE - SERUM 1.2 mg/dL (0.7-1.3); GLUCOSE 158 mg/dL (70-105); POTASSIUM SERUM 4.5 mEq/L (3.5-5.1); SGOT 11 U/L (13-39); SGPT/ALT 8 U/L (7-52); SODIUM SERUM 135 mEq/L (136-145); TOTAL PROTEIN,SERUM 7.5 gm/dL (6.0-8.3)
[2018-06-30] MEDS: Albuterol Nebulizer 2.5mg/3mL HHN SCH ×3 (08:14→19:29)
[2018-06-30] MEDS: Budesonide 0.5 Mg/2 mL Ud HHN SCH ×2 (08:14→19:30)
[2018-06-30] MEDS: INSULIN ASPART SLIDING SCALE 100 UNITS/ML UNIT SUBQ SCH ×4 (08:18→21:26)
[2018-06-30] MEDS: Pantoprazole 40 mg EC Tab PO SCH (09:00)
[2018-06-30] MEDS: Enoxaparin 100 mg/mL 1mL Syr SUBQ SCH ×2 (09:01→21:29)
[2018-06-30] MEDS: Insulin Detemir 100 units/mL 10mL Vial SUBQ SCH (21:26)
[2018-06-30] MEDS: Atorvastatin Calcium 10 MG TAB PO SCH (21:30)
[2018-07-01] MEDS: Sodium Chloride 0.9% 1,000 ML IV SCH (04:26)
[2018-07-01] MEDS: INSULIN ASPART SLIDING SCALE 100 UNITS/ML UNIT SUBQ SCH ×2 (06:44→12:04)
[2018-07-01] MEDS: Hydrocodone/APAP 5mg/325mg Tab PO PRN (06:47)
[2018-07-01] MEDS: Albuterol Nebulizer 2.5mg/3mL HHN SCH ×2 (07:00→14:06)
[2018-07-01] MEDS: Budesonide 0.5 Mg/2 mL Ud HHN SCH (07:00)
[2018-07-01 08:07] LABS: % BASOPHILS 0.6 % (0.0-2.0); % EOSINOPHILS 2.7 % (0.0-5.0); % LYMPHOCYTES 28.2 % (20.0-50.0); % MONOCYTES 10.3 % (2.0-10.0); % NEUTROPHILS 58.2 % (40.0-80.0); EOSINOPHILE ABSOLUTE 0.2 Th/cmm (0.1-0.4); HEMATOCRIT 29.3 % (41.0-60); HEMOGLOBIN 9.8 gm/dL (12-16); LYMPHOCYTE ABSOLUTE 1.7 Th/cmm (1.5-3.0); MEAN CELL VOLUME 76.6 fl (80-99); MEAN CORPUSCULAR HEMOGLOBIN 25.7 pg (27.0-31.0); MEAN CORPUSCULAR HGB CONC 33.6 pg (28.0-36.0); MEAN PLATELET VOLUME 6.9 fl; MONOCYTE ABSOLUTE 0.6 Th/cmm (0.3-1.0); NEUTROPHILE ABSOLUTE 3.4 Th/cmm (1.8-8.0); PLATELET COUNT 264 Th/cmm (150-400); RED BLOOD COUNT 3.83 Mil/cmm (3.80-5.80); RED CELL DISTRIBUTION WIDTH 17.3 % (11.5-20.0); WHITE BLOOD COUNT 5.9 Th/cmm (4.8-10.8)
[2018-07-01 08:20] LABS: ALB/GLOB RATIO 1.1 (1.0-1.8); ALBUMIN 3.8 gm/dL (4.2-5.5); ALKALINE PHOSPHATASE 92 U/L (34-104); ANION GAP 11.8 (7.0-16.0); BILIRUBIN,TOTAL 0.6 mg/dL (0.3-1.0); BUN - UREA NITROGEN 22 mg/dL (7-25); CALCIUM SERUM 9.2 mg/dL (8.6-10.3); CARBON DIOXIDE 24.9 mEq/L (21.0-31.0); CHLORIDE 100 mEq/L (98-107); GLUCOSE 187 mg/dL (70-105); POTASSIUM SERUM 4.7 mEq/L (3.5-5.1); SGOT 12 U/L (13-39); SGPT/ALT 9 U/L (7-52); SODIUM SERUM 132 mEq/L (136-145); TOTAL PROTEIN,SERUM 7.2 gm/dL (6.0-8.3)
[2018-07-01] MEDS: Pantoprazole 40 mg EC Tab PO SCH (08:39)
[2018-07-01] MEDS: Enoxaparin 100 mg/mL 1mL Syr SUBQ SCH (08:41)
--- NOTE | 2018-07-01 09:16 | Discharge Summary ---
General Discharge Summary - Discharge Summary Date of Admission: 06/27/18 Admitting Diagnosis: Increased in confusion, elevated trioponin, HTN, DM, COPD, Deaf, Hx of [place] Discharge Date: 07/01/18 Discharge Diagnosis: Non ST elevation [place], HTN, DM, COPD, Deaf, Hx of coronary stent. Laboratory Findings: Laboratory Results - last 24 hr 06/30/18 06/30/18 07/01/18 16:57 21:17 06:36 WBC RBC Hgb Hct MCV MCH MCHC Differential RDW Plt Count MPV Neutrophils % Lymphocytes % Monocytes % Eosinophils % Basophils % Sodium Potassium Chloride Carbon Dioxide Anion Gap BUN Creatinine Est GFR ( Amer) Est GFR (Non-Af Amer) BUN/Creatinine Ratio Glucose POC Glucose 212 H 293 H 162 H Calcium Total Bilirubin AST ALT Alkaline Phosphatase Troponin I Total Protein Albumin Globulin Albumin/Globulin Ratio 07/01/18 07/01/18 07/01/18 07:20 07:20 07:20 WBC 5.9 RBC 3.83 Hgb 9.8 L Hct 29.3 L MCV 76.6 L MCH 25.7 L MCHC Differential 33.6 RDW 17.3 Plt Count 264 MPV 6.9 Neutrophils % 58.2 Lymphocytes % 28.2 Monocytes % 10.3 H Eosinophils % 2.7 Basophils % 0.6 Sodium 132 L Potassium 4.7 Chloride 100 Carbon Dioxide 24.9 Anion Gap 11.8 BUN 22 Creatinine 1.0 Est GFR ( Amer) TNP Est GFR (Non-Af Amer) TNP BUN/Creatinine Ratio 22.0 Glucose 187 H POC Glucose Calcium 9.2 Total Bilirubin 0.6 AST 12 L ALT 9 Alkaline Phosphatase 92 Troponin I 0.05 Total Protein 7.2 Albumin 3.8 L Globulin 3.4 Albumin/Globulin Ratio 1.1 Hospital Course: Patient was hospitalized in ICU, he was started in IV NS, Lovenox, continue with SNF meds. Little by little troponin came down. He wasw transfer to regular floor and then DC. Disposition: Discharge/Transfered to SNF Home Medications: Home Medication Medication Instructions Recorded Type Albuterol Sulfate [Proair 90 mcg IH Q6H PRN 06/27/18 History Respiclick] Aspirin [Aspirin Chewable] 81 mg PO DAILY 06/27/18 History Budesonide/Formoterol Fumarate 14.5 mcg IH BID 06/27/18 History [Symbicort 160-4.5 Mcg Inhaler] Tiotropium [place] [Spiriva 2.5 mcg IH TID PRN 06/27/18 History Respimat] Acetaminophen [Tylenol] 650 mg PO Q6HR PRN tab 07/01/18 Rx Albuterol Nebulizer 2.5mg/3mL 2.5 mg HHN [id number] each 07/01/18 Rx [Albuterol Neb UD*] Aspirin 325 mg PO DAILY tab 07/01/18 Rx Atorvastatin Calcium [Lipitor] 40 mg PO HS tab 07/01/18 Rx Budesonide [Pulmicort] 0.5 mg HHN BIDRT ud 07/01/18 Rx Enoxaparin [Lovenox] 100 mg SUBQ Q12HR syr 07/01/18 Rx FLUoxetine HCL [Prozac*] 20 mg PO BID cap 07/01/18 Rx Hydrocodone/APAP 5mg/325mg [[place] 1 tab PO Q6H PRN tab 07/01/18 Rx 5mg/325mg] Insulin Aspart Sliding Scale See Protocol SUBQ ACHS unit 07/01/18 Rx [NovoLOG INSULIN SLIDING SCALE] Insulin Detemir [Levemir Insulin] 25 units SUBQ HS vial 07/01/18 Rx Lisinopril [Zestril*] 10 mg PO DAILY tab 07/01/18 Rx Metoprolol Succinate [Toprol Xl] [address] 07/01/18 Rx Mupirocin Oint [Mupirocin*] 1 appl TP Q12HR appl 07/01/18 Rx Pantoprazole [Protonix] 40 mg PO DAILY ect 07/01/18 Rx Inpatient Medications: Current Medications Acetaminophen (Tylenol) 650 mg PO Q6HR PRN PRN Reason: Pain (Mild) Stop: 08/26/18 22:41 Last Admin: 06/30/18 19:42 Dose: 650 mg Acetaminophen/Hydrocodone Bitart ([place] 5mg/325mg) 1 tab PO Q6H PRN PRN Reason: Pain (Severe) Stop: 08/26/18 22:41 Last Admin: 07/01/18 06:47 Dose: 1 tab Albuterol Sulfate (Albuterol 2.5mg/3ml Neb Ud) 2.5 mg HHN [id number] [facility]AYDE Stop: 08/27/18 18:59 Last Admin: 07/01/18 07:00 Dose: 2.5 mg Aspirin (Aspirin) 325 mg PO DAILY [facility] Stop: 08/26/18 17:59 Last Admin: 07/01/18 08:44 Dose: 325 mg Atorvastatin Calcium (Lipitor) 40 mg PO HS [facility] Stop: 08/27/18 20:59 Last Admin: 06/30/18 21:30 Dose: 40 mg Budesonide (Pulmicort) 0.5 mg HHN BIDRT [facility] Stop: 08/27/18 18:59 Last Admin: 07/01/18 07:00 Dose: 0.5 mg Enoxaparin Sodium (Lovenox) 100 mg SUBQ Q12HR [facility] Stop: 08/27/18 09:59 Last Admin: 07/01/18 08:41 Dose: 100 mg Fluoxetine HCl (Prozac) 20 mg PO BID [facility]; Protocol Stop: 08/27/18 08:59 Last Admin: 07/01/18 08:39 Dose: 20 mg Sodium Chloride (Nacl 0.9%) 1,000 mls @ 80 mls/hr IV .[id number] [facility] Stop: 08/27/18 07:59 Last Admin: 07/01/18 04:26 Dose: 80 mls/hr Insulin Aspart (Novolog Insulin Sliding Scale) 0 units SUBQ [facility]; Protocol Stop: 08/27/18 07:29 Last Admin: 07/01/18 06:44 Dose: 2 units Insulin Detemir (Levemir Insulin) 25 units SUBQ HS [facility] Stop: 08/27/18 20:59 Last Admin: 06/30/18 21:26 Dose: 25 units Lisinopril (Zestril) 10 mg PO DAILY [facility] Stop: 08/27/18 08:59 Last Admin: 07/01/18 08:39 Dose: 10 mg Metoprolol Succinate (Toprol Xl) 25 mg PO DAILY [facility] Stop: 08/27/18 08:59 Last Admin: 07/01/18 08:40 Dose: 25 mg Mupirocin (Bactroban Oint) 1 appl TP Q12HR [facility] Stop: 07/04/18 20:59 Last Admin: 07/01/18 08:42 Dose: 1 appl Pantoprazole Sodium (Protonix) 40 mg PO DAILY [facility] Stop: 08/27/18 08:59 Last Admin: 07/01/18 08:39 Dose: 40 mg Activity: As Tolerated Discharge Diet: 2 Gram Sodium Consults and Follow-Up: Navi Santos [Primary Care Provider] - Consulting Speciality: Cardiac, Other (PCP) Instructions: Blood Tests, Chest Wall Pain
== END 2018-07-01 14:32 | DRG 280 ==
LOC: ER 16:03 → TELE 17:45 → ICU 23:20 → TELE 06-28 21:35
PROVIDERS: ADMIT General Practice; ATTEND General Practice
DX: I21.4 Non-ST elevation (NSTEMI) myocardial infarction (principal); G93.41 Metabolic encephalopathy; I10 Essential (primary) hypertension; E11.9 Type 2 diabetes mellitus without complications; Z95.5 Presence of coronary angioplasty implant and graft; J44.9 Chronic obstructive pulmonary disease, unspecified; I25.10 Atherosclerotic heart disease of native coronary artery without angina pectoris; E78.5 Hyperlipidemia, unspecified; M19.90 Unspecified osteoarthritis, unspecified site; F03.90 Unspecified dementia, unspecified severity, without behavioral disturbance, psychotic disturbance, mood disturbance, and anxiety; F31.9 Bipolar disorder, unspecified; H91.93 Unspecified hearing loss, bilateral; I25.119 Atherosclerotic heart disease of native coronary artery with unspecified angina pectoris; Z88.8 Allergy status to other drugs, medicaments and biological substances; Z86.73 Personal history of transient ischemic attack (TIA), and cerebral infarction without residual deficits; Z79.82 Long term (current) use of aspirin; Z79.4 Long term (current) use of insulin; Z91.018 Allergy to other foods
CPT/HCPCS: 36415-UA; 70450-TC; 71045-TC; 80053-TC; 81001-TC; 82948-90; 83036-90; 83880-TC; 84443-TC; 84484-TC; 85025-TC; 85610-TC; 85730-TC; 86592-TC; 93005; 94640; 94760; J1650; J1815; J7613; Z7610